=== PATIENT | female | born 1965 | race Caucasian/White ===

== ENCOUNTER → 2017-06-18 | Outpatient (CLI) | payer OTHER | END | disposition home or self-care (01) | LOC: RT 12:28 | DX: G47.33 Obstructive sleep apnea (adult) (pediatric) (principal); Z87.891 Personal history of nicotine dependence | CPT/HCPCS: G0399 ==

== ENCOUNTER → 2017-09-14 | Outpatient (CLI) | payer OTHER ==
[2017-09-14] MEDS: GADOBUTROL 7.5 MMOL/7.5 ML VIAL IV (15:22)
== END | disposition home or self-care (01) ==
LOC: KCIC MRI 13:44
DX: R42 Dizziness and giddiness (principal); Z87.891 Personal history of nicotine dependence
CPT/HCPCS: 70553; A9585

== ENCOUNTER → 2018-07-26 | Outpatient (CLI) | payer OTHER ==
[2015-05-03 00:32] VITALS: BP 153/89
[~2018-07-26] MED LIST: AMLO5TAB10 PO; ATEN50TA PO; CITA10TA4 PO; HYDR12.575 PO; MECL12.52 PO; ONDA4TAB7 PO; PROP10TA PO
--- NOTE | 2018-07-26 15:22 | KCIC ---
EXAM: RIGHT HIP, 2 VIEWS. HISTORY: Right hip pain. COMPARISON: None. FINDINGS: No fractures are identified. There is a tiny osteophyte along the posterior aspect of the femoral head. Joint spaces and alignment are maintained. IMPRESSION: 1. Joint spaces are preserved. A tiny femoral head osteophyte suggests early osteoarthritis.. Electronically signed by: Don Leblanc MD (07/26/2018 3:19 PM) [facility]
== END | disposition home or self-care (01) ==
LOC: KCIC 14:27
PROVIDERS: ATTEND Family Medicine
DX: M25.751 Osteophyte, right hip (principal)
CPT/HCPCS: 73502

== ENCOUNTER → 2018-07-30 | Outpatient (CLI) | payer OTHER ==
[2015-05-03 00:32] VITALS: BP 153/89
--- NOTE | 2018-07-30 14:41 | KCIC ---
MR of the right hip HISTORY: Right hip pain, possible labral tear. Pain for one month. TECHNIQUE: Routine multiplanar sequences are obtained. FINDINGS: No bone destruction, acute fracture or femoral head osteonecrosis. No acute fracture. No significant joint effusion. No evidence of labral tear or detachment. No para labral cyst. No advanced degenerative change. Gluteus minimus and medius tendons are intact. Hamstring tendon intact. Iliopsoas tendon intact. Rectus femoris tendon intact. No abnormal soft tissue edema or fluid collection. Large [id number] coronal STIR survey sequence demonstrates no acute findings at the contralateral hip or elsewhere in the [id number]. IMPRESSION: No acute findings or internal derangement. Electronically signed by: Keith Escobar MD (07/30/2018 2:38 PM) [id number]
== END | disposition home or self-care (01) ==
LOC: KCIC MRI 13:42
PROVIDERS: ATTEND Family Medicine
DX: M25.551 Pain in right hip (principal)
CPT/HCPCS: 73721

== ENCOUNTER 2018-10-08 12:54 | Emergency (ER) | payer OTHER ==
[~2018-10-08] VITALS: Ht 157.5 cm; Wt 77.1 kg
[2018-10-08] MEDS ORDERED: KETOROLAC 15 MG/ML VIAL. ONE (13:10)
[2018-10-08] MEDS ORDERED: MORPHINE SULFATE 2 MG/ML VIAL. ONE (13:10)
--- NOTE | 2018-10-08 13:16 | PHYS DOC ---
Past Medical History Past Medical History: Anxiety, Hypertension Additional Past Medical Histor: "anxiety attacks" Past Surgical History: Appendectomy Alcohol Use: None Drug Use: None Adult General Chief Complaint Chief Complaint: ABDOMINAL PAIN HPI HPI Patient is a 53 year old female presents with right flank pain, dysuria this been ongoing for 2 days. Patient is a 10 out of 10 pain that is throbbing and sharp. Has not taken any medicine prior to arrival. Review of Systems Review of Systems Constitutional: Denies fever or chills [] Eyes: Denies change in visual acuity, redness, or eye pain [] HENT: Denies nasal congestion or sore throat [] Respiratory: Denies cough or shortness of breath [] Cardiovascular: No additional information not addressed in HPI [] GI: Reports abdominal pain, nausea, Denies vomiting, bloody stools or diarrhea [] : Reports dysuria Musculoskeletal: Denies back pain or joint pain [] Integument: Denies rash or skin lesions [] Neurologic: Denies headache, focal weakness or sensory changes [] Endocrine: Denies polyuria or polydipsia [] Complete systems were reviewed and found to be within normal limits, except as documented in this note. Current Medications Current Medications Current Medications Medications (Trade) Dose Ordered Sig/Jerome Start Time Stop Time Status Last Admin Dose Admin Ketorolac Tromethamine (Toradol 15mg Vial) 15 mg STK-MED ONCE 10/08/18 13:10 10/08/18 13:10 DC Morphine Sulfate (Morphine Sulfate) 2 mg STK-MED ONCE 10/08/18 13:10 10/08/18 13:10 DC Sodium Chloride 1,000 ml @ 1,000 mls/hr 1X ONCE 10/08/18 13:30 10/08/18 14:29 DC 10/08/18 13:12 1,000 MLS/HR Allergies Allergies Allergies Coded Allergies Type Severity Reaction Last Updated Verified No Known Drug Allergies 05/03/15 No Physical Exam Physical Exam Constitutional: Well developed, well nourished, no acute distress, non-toxic appearance. [] HENT: Normocephalic, atraumatic, bilateral external ears normal, oropharynx moist, no oral exudates, nose normal. [] Eyes: PERRLA, EOMI, conjunctiva normal, no discharge. [] Neck: Normal range of motion, no tenderness, supple, no stridor. [] Cardiovascular:Heart rate regular rhythm, no murmur [] Lungs & Thorax: Bilateral breath sounds clear to auscultation [] Abdomen: Bowel sounds normal, soft, diffuse tenderness in the R flank, no masses, no pulsatile masses. [] Skin: Warm, dry, no erythema, no rash. [] Back: has R CVA tenderness. [] Extremities: No tenderness, no cyanosis, no clubbing, ROM intact, no edema. [] Neurologic: Alert and oriented X 3, normal motor function, normal sensory function, no focal deficits noted. [] Psychologic: Affect normal, judgement normal, mood normal. [] Current Patient Data Vital Signs Vital Signs Date Time Temp Pulse Resp B/P (MAP) Pulse Ox O2 Delivery O2 Flow Rate FiO2 10/08/18 13:03 98.2 98 24 150/76 (100) 99 Room Air 98.2 Lab Values Laboratory Tests Test 10/08/18 13:05 10/08/18 14:25 White Blood Count 8.1 x10^3/uL (4.0-11.0) Red Blood Count 4.74 x10^6/uL (3.50-5.40) Hemoglobin 14.7 g/dL (12.0-15.5) Hematocrit 43.0 % (36.0-47.0) Mean Corpuscular Volume 91 fL (79-100) Mean Corpuscular Hemoglobin 31 pg (25-35) Mean Corpuscular Hemoglobin Concent 34 g/dL (31-37) Red Cell Distribution Width 14.2 % (11.5-14.5) Platelet Count 298 x10^3/uL (140-400) Neutrophils (%) (Auto) 70 % (31-73) Lymphocytes (%) (Auto) 24 % (24-48) Monocytes (%) (Auto) 5 % (0-9) Eosinophils (%) (Auto) 1 % (0-3) Basophils (%) (Auto) 1 % (0-3) Neutrophils # (Auto) 5.7 x10^3/uL (1.8-7.7) Lymphocytes # (Auto) 1.9 x10^3/uL (1.0-4.8) Monocytes # (Auto) 0.4 x10^3/uL (0.0-1.1) Eosinophils # (Auto) 0.1 x10^3/uL (0.0-0.7) Basophils # (Auto) 0.0 x10^3/uL (0.0-0.2) Sodium Level 138 mmol/L (136-145) Potassium Level 3.5 mmol/L (3.5-5.1) Chloride Level 100 mmol/L (98-107) Carbon Dioxide Level 28 mmol/L (21-32) Anion Gap 10 (6-14) Blood Urea Nitrogen 9 mg/dL (7-20) Creatinine 0.7 mg/dL (0.6-1.0) Estimated GFR (Cockcroft-Gault) 88.2 BUN/Creatinine Ratio 13 (6-20) Glucose Level 102 mg/dL (70-99) H Calcium Level 9.3 mg/dL (8.5-10.1) Total Bilirubin 0.4 mg/dL (0.2-1.0) Aspartate Amino Transferase (AST) 16 U/L (15-37) Alanine Aminotransferase (ALT) 46 U/L (14-59) Alkaline Phosphatase 77 U/L (46-116) Total Protein 8.1 g/dL (6.4-8.2) Albumin 4.1 g/dL (3.4-5.0) Albumin/Globulin Ratio 1.0 (1.0-1.7) Lipase 131 U/L (73-393) Urine Color Yellow Urine Clarity Clear Urine pH 7.5 Urine Specific [place] 1.010 Urine Protein Negative mg/dL (NEG-TRACE) Urine Glucose (UA) Negative mg/dL (NEG) Urine Ketones (Stick) Negative mg/dL (NEG) Urine Blood Small (NEG) Urine Nitrite Negative (NEG) Urine Bilirubin Negative (NEG) Urine Urobilinogen Dipstick 0.2 mg/dL (0.2 mg/dL) Urine Leukocyte Esterase Negative (NEG) Urine RBC Occ /HPF (0-2) Urine WBC 1-4 /HPF (0-4) Urine Squamous Epithelial Cells Occ /LPF Urine Bacteria 0 /HPF (0-FEW) Urine Mucus Slight /LPF Laboratory Tests 10/08/18 13:05 Laboratory Tests 10/08/18 13:05 EKG EKG [] Radiology/Procedures Radiology/Procedures [][facility] [address] [place] [address] IMAGING REPORT Signed PATIENT: HASMUKH TIRADO JACCOUNT: [id number] : 1965 LOCATION: ER AGE: 53 SEX: F EXAM STATUS: REG ER ORD. PHYSICIAN: CHAPITO BELTRAN APRN REASON: R flank pain PROCEDURE: CT ABDOMEN PELVIS WO CONTRAST PQRS Compliance statement: One or more of the following individualized dose reduction techniques were utilized for this examination: 1. Automated exposure control. 2. Adjustment of the mA and/or kV according to patient size. 3. Use of iterative reconstruction technique. Indication:Right flank pain. TECHNIQUE: CT abdomen and pelvis without IV contrast with multiplanar reformats. COMPARISON: 02/04/2016 FINDINGS: Limited evaluation of solid abdominal and pelvic organs due to lack of IV contrast. Heart is normal in size. No pericardial or pleural effusion. Mild bibasilar dependent atelectasis. Noncontrast appearance of the liver, spleen, gallbladder, pancreas, adrenals and kidneys within normal limits. No enlarged retroperitoneal or pelvic adenopathy. No free pelvic fluid or ascites. No bowel obstruction. Appendix is surgically absent. Uterus is present. Urinary bladder demonstrates no radiopaque stone. No pneumoperitoneum. No suspicious bony lesion. IMPRESSION: Limited evaluation of solid abdominal and pelvic organs due to lack of IV contrast. No nephrolithiasis or hydronephrosis. Electronically signed by: Noah Ash DO (10/08/2018 2:12 PM) [facility] DICTATED and SIGNED BY: NOAH ASH DO DATE: 10/08/18 1412 Course & Med Decision Making Course & Med Decision Making Pertinent Labs and Imaging studies reviewed. (See chart for details) Will give supportive care, labs, and get CT scan. Labs, urine, and CT scan is unremarkable with exception of blood in urine. Clinical exam and patient pain improving with Toradol and Morphine makes me wonder if patient has small kidney stone that was not seen on CT. Will treat like a kidney stone. Dragon Disclaimer Dragon Disclaimer This electronic medical record was generated, in whole or in part, using a voice recognition dictation system. Departure Departure Impression: Primary Impression: Abdominal pain Disposition: 01 HOME, SELF-CARE Condition: STABLE Referrals: JOCELIN LATIF MD (PCP) Patient Instructions: Diet for Kidney Stones, Kidney Stones Additional Instructions: Thank you for visiting [facility]. We appreciate you trusting us with your care. If any additional problems come up don't hesitate to return to visit us. Please follow up with your primary care provider so they can plan additional care if needed and know about the problem that you had. If symptoms worsen come back to the Emergency Department. Any concerning symptoms that start such as chest pain, shortness of air, weakness or numbness on one side of the body, running high fevers or any other concerning symptoms return to the ER. Please fill your medications at any pharmacy and follow the prescription instructions. Scripts Tamsulosin Hcl (FLOMAX) 0.4 Mg Cap.er.24h 1 CAP PO DAILY, #15 CAP 11 Refills Prov: CHAPITO BELTRAN APRN 10/08/18 Hydrocodone/Apap 5-325 (NORCO 5-325 TABLET) 1 Each Tablet 1 TAB PO PRN Q6HRS PRN for PAIN for 3 Days, #10 TAB 0 Refills Prov: CHAPITO BELTRAN APRN 10/08/18 Ondansetron (ONDANSETRON ODT) 4 Mg Tab.rapdis 1 TAB PO PRN Q6-8HRS PRN for NAUSEA, #16 TAB Prov: CHAPITO BELTRAN APRN 10/08/18 Problem Qualifiers Primary Impression: Abdominal pain Abdominal location: unspecified location Qualified Codes: R10.9 - Unspecified abdominal pain CHAPITO BELTRAN APRN Oct 08, 2018 13:16
[2018-10-08 13:22] LABS: BASO % 1 % (0-3); EOS # 0.1 x10^3/uL (0.0-0.7); EOS % 1 % (0-3); HEMOGLOBIN 14.7 g/dL (12.0-15.5); LYMPH # 1.9 x10^3/uL (1.0-4.8); LYMPH % 24 % (24-48); MEAN CORPUSCULAR HEMOGLOBIN 31 pg (25-35); MEAN CORPUSCULAR HGB CONC 34 g/dL (31-37); MEAN CORPUSCULAR VOLUME 91 fL (79-100); MONO # 0.4 x10^3/uL (0.0-1.1); MONO % 5 % (0-9); NEUT # 5.7 x10^3/uL (1.8-7.7); NEUT % 70 % (31-73); PLATELET COUNT 298 x10^3/uL (140-400); RED BLOOD COUNT 4.74 x10^6/uL (3.50-5.40); RED CELL DISTRIBUTION WIDTH 14.2 % (11.5-14.5); WHITE BLOOD COUNT 8.1 x10^3/uL (4.0-11.0)
[2018-10-08 13:30] LABS: CALCIUM 9.3 mg/dL (8.5-10.1); CREATININE 0.7 mg/dL (0.6-1.0); GFR 88.2; POTASSIUM 3.5 mmol/L (3.5-5.1)
[2018-10-08] MEDS ORDERED: KETOROLAC 15 MG/ML VIAL. IV ONE (13:30)
[2018-10-08] MEDS ORDERED: MORPHINE SULFATE 2 MG/ML VIAL. IV ONE (13:30)
[2018-10-08] MEDS ORDERED: IV NORMAL SALINE 1000ML BAG 1,000 ML IV ONE (13:30)
[2018-10-08 13:35] LABS: ALBUMIN 4.1 g/dL (3.4-5.0); TOTAL BILIRUBIN 0.4 mg/dL (0.2-1.0); TOTAL PROTEIN 8.1 g/dL (6.4-8.2)
--- NOTE | 2018-10-08 14:14 | RAD ---
PQRS Compliance statement: One or more of the following individualized dose reduction techniques were utilized for this examination: 1. Automated exposure control. 2. Adjustment of the mA and/or kV according to patient size. 3. Use of iterative reconstruction technique. Indication:Right flank pain. TECHNIQUE: CT abdomen and pelvis without IV contrast with multiplanar reformats. COMPARISON: 02/04/2016 FINDINGS: Limited evaluation of solid abdominal and pelvic organs due to lack of IV contrast. Heart is normal in size. No pericardial or pleural effusion. Mild bibasilar dependent atelectasis. Noncontrast appearance of the liver, spleen, gallbladder, pancreas, adrenals and kidneys within normal limits. No enlarged retroperitoneal or pelvic adenopathy. No free pelvic fluid or ascites. No bowel obstruction. Appendix is surgically absent. Uterus is present. Urinary bladder demonstrates no radiopaque stone. No pneumoperitoneum. No suspicious bony lesion. IMPRESSION: Limited evaluation of solid abdominal and pelvic organs due to lack of IV contrast. No nephrolithiasis or hydronephrosis. Electronically signed by: Noah Ash DO (10/08/2018 2:12 PM) [facility]
[2018-10-08 14:28] VITALS: BP 109/74
[2018-10-08 14:46] LABS: BILIRUBIN,URINE NEGATIVE (NEG); CLARITY,URINE CLEAR; COLOR,URINE YELLOW; NITRITE,URINE NEGATIVE (NEG); PH,URINE 7.5; PROTEIN,URINE NEGATIVE (NEG-TRACE); UROBILINOGEN,URINE 0.2 mg/dL (0.2 mg/dL)
[2018-10-08 15:06] LABS: BACTERIA,URINE 0 /HPF (0-FEW); RBC,URINE OCC /HPF (0-2); SQUAMOUS EPITHELIAL CELL,UR OCC /LPF
[2018-10-08] MEDS ORDERED: TAMS0.4C97 PO (15:37)
[2018-10-08] MEDS ORDERED: ONDA4TAB12 PO (15:37)
[2018-10-08] MEDS ORDERED: HYDR-3164 PO (15:37)
== END 2018-10-08 16:15 | disposition home or self-care (01) ==
LOC: ER 12:54
DX: R10.11 Right upper quadrant pain (principal); R10.31 Right lower quadrant pain; R30.0 Dysuria; R11.0 Nausea; F41.9 Anxiety disorder, unspecified; I10 Essential (primary) hypertension; Z90.89 Acquired absence of other organs
CPT/HCPCS: 36415; 74176; 80053; 81001; 83690; 85025; 96374; 96375; 99285; J1885; J2270; J7030

== ENCOUNTER 2018-10-10 08:50 | Emergency (ER) | payer OTHER ==
[~2018-10-10] VITALS: Ht 154.9 cm; Wt 77.6 kg
[~2018-10-10 08:50] MED LIST changes: +HYDR-3164 PO; +ONDA4TAB12 PO; +TAMS0.4C97 PO
[2018-10-10] MEDS ORDERED: IV NORMAL SALINE 1000ML BAG 1,000 ML IV SCH (09:33)
[2018-10-10 09:43] LABS: BASO # 0.1 x10^3/uL (0.0-0.2); BASO % 1 % (0-3); EOS # 0.1 x10^3/uL (0.0-0.7); EOS % 1 % (0-3); LYMPH # 1.4 x10^3/uL (1.0-4.8); LYMPH % 21 % (24-48); MEAN CORPUSCULAR HEMOGLOBIN 31 pg (25-35); MEAN CORPUSCULAR HGB CONC 34 g/dL (31-37); MEAN CORPUSCULAR VOLUME 90 fL (79-100); MONO # 0.3 x10^3/uL (0.0-1.1); MONO % 5 % (0-9); NEUT # 4.8 x10^3/uL (1.8-7.7); NEUT % 72 % (31-73); PLATELET COUNT 268 x10^3/uL (140-400); RED BLOOD COUNT 4.53 x10^6/uL (3.50-5.40); RED CELL DISTRIBUTION WIDTH 14.3 % (11.5-14.5); WHITE BLOOD COUNT 6.7 x10^3/uL (4.0-11.0)
--- NOTE | 2018-10-10 09:44 | PHYS DOC ---
Past Medical History Past Medical History: Anxiety, Hypertension, UTI Additional Past Medical Histor: "anxiety attacks" Past Surgical History: Appendectomy, Hysterectomy Alcohol Use: None Drug Use: None Adult General Chief Complaint Chief Complaint: FLANK PAIN HPI HPI Pt is a 53-year-old female presents to the emergency department for evaluation. She was seen in the emergency department 2 days ago for right-sided flank pain. Lab and imaging tests were obtained, which did not reveal a definitive diagnosis. The patient was treated for a possible kidney stone and states that in the past 2 days, the pain is moved from her right flank, down to her pelvic area. She states that she last urinated before she went to bed last night, and has been unable to urinate since then, she states she dribbled a little bit of urine while in the shower. She has not had any fevers, nausea, vomiting. She does have a history of incontinence in the past, for which she has been taking oxybutynin for about a year. She has not had any fevers, chills, numbness, or weakness in her legs, nausea or vomiting. There are no alleviating, or exacerbating factors to her symptoms otherwise. Review of Systems Review of Systems Constitutional: Denies fever or chills [] Eyes: Denies change in visual acuity, redness, or eye pain [] HENT: Denies nasal congestion or sore throat [] Respiratory: Denies cough or shortness of breath [] Cardiovascular: The patient denies any shortness of breath, chest pain, palpitations, or orthopnea [] GI: Denies abdominal pain, nausea, vomiting, bloody stools or diarrhea [] : Reports some dysuria, and pelvic pain.[] Musculoskeletal: Denies back pain or joint pain [] Integument: Denies rash or skin lesions [] Neurologic: Denies headache, focal weakness or sensory changes [] Endocrine: Denies polyuria or polydipsia [] All other systems were reviewed and found to be within normal limits, except as documented in this note. Current Medications Current Medications Current Medications Medications (Trade) Dose Ordered Sig/Jerome Start Time Stop Time Status Last Admin Dose Admin Ceftriaxone Sodium (Rocephin) 1 gm 1X ONCE 10/10/18 12:30 10/10/18 12:31 10/10/18 12:27 1 GM Lorazepam (Ativan Inj) 1 mg 1X ONCE 10/10/18 09:45 10/10/18 09:46 DC 10/10/18 09:46 1 MG Morphine Sulfate (Morphine Sulfate) 4 mg 1X ONCE 10/10/18 09:45 10/10/18 09:46 DC 10/10/18 09:46 4 MG Sodium Chloride 1,000 ml @ 1,000 mls/hr Q1H 10/10/18 09:33 10/10/18 10:32 DC 10/10/18 09:46 1,000 MLS/HR Allergies Allergies Allergies Coded Allergies Type Severity Reaction Last Updated Verified No Known Drug Allergies 05/03/15 No Physical Exam Physical Exam PHYSICAL EXAM: CONSTITUTIONAL: Well developed, well nourished HEAD: normocephalic, atraumatic EENT: PERRL, EOMI. Conjunctivae normal color, sclerae non-icteric; moist mucous membranes. NECK: Supple, non-tender; no meningismus. LUNGS: Lungs CTA, breathing even and unlabored. Normal air movement. HEART: Regular rate and rhythm, no murmur CHEST: No deformity; non-tender ABDOMEN: The abdomen is soft, there is diffuse tenderness to palpation in the lower abdomen, without rebound or guarding, the remainder the abdomen is soft and non-tender, no masses or bruits. EXTREM: Normal ROM; no deformity, no calf tenderness. Normal pulses palpable in all extremities. There is no pedal edema. SKIN: No rash; no diaphoresis NEURO: Alert; normal speech and cognition; CN's grossly intact; strength grossly intact without focal deficit. There is no foot drop. There is no perineal anesthesia. Patellar reflexes are 2+ bilaterally. BACK: No CVA TTP. There is mild right lower lumbar paraspinal muscle tenderness to palpation, without any midline vertebral tenderness to palpation. PSYCHIATRIC: The patient exhibits a moderately anxious affect. Current Patient Data Vital Signs Vital Signs Date Time Temp Pulse Resp B/P (MAP) Pulse Ox O2 Delivery O2 Flow Rate FiO2 10/10/18 10:37 80 18 96/59 (71) 95 Room Air 10/10/18 09:05 98.2 98.2 Lab Values Laboratory Tests Test 10/10/18 09:16 10/10/18 11:18 White Blood Count 6.7 x10^3/uL (4.0-11.0) Red Blood Count 4.53 x10^6/uL (3.50-5.40) Hemoglobin 14.0 g/dL (12.0-15.5) Hematocrit 41.0 % (36.0-47.0) Mean Corpuscular Volume 90 fL (79-100) Mean Corpuscular Hemoglobin 31 pg (25-35) Mean Corpuscular Hemoglobin Concent 34 g/dL (31-37) Red Cell Distribution Width 14.3 % (11.5-14.5) Platelet Count 268 x10^3/uL (140-400) Neutrophils (%) (Auto) 72 % (31-73) Lymphocytes (%) (Auto) 21 % (24-48) L Monocytes (%) (Auto) 5 % (0-9) Eosinophils (%) (Auto) 1 % (0-3) Basophils (%) (Auto) 1 % (0-3) Neutrophils # (Auto) 4.8 x10^3/uL (1.8-7.7) Lymphocytes # (Auto) 1.4 x10^3/uL (1.0-4.8) Monocytes # (Auto) 0.3 x10^3/uL (0.0-1.1) Eosinophils # (Auto) 0.1 x10^3/uL (0.0-0.7) Basophils # (Auto) 0.1 x10^3/uL (0.0-0.2) Sodium Level 141 mmol/L (136-145) Potassium Level 3.8 mmol/L (3.5-5.1) Chloride Level 103 mmol/L (98-107) Carbon Dioxide Level 27 mmol/L (21-32) Anion Gap 11 (6-14) Blood Urea Nitrogen 10 mg/dL (7-20) Creatinine 0.7 mg/dL (0.6-1.0) Estimated GFR (Cockcroft-Gault) 88.2 BUN/Creatinine Ratio 14 (6-20) Glucose Level 107 mg/dL (70-99) H Calcium Level 9.1 mg/dL (8.5-10.1) Total Bilirubin 0.4 mg/dL (0.2-1.0) Aspartate Amino Transferase (AST) 15 U/L (15-37) Alanine Aminotransferase (ALT) 36 U/L (14-59) Alkaline Phosphatase 69 U/L (46-116) Total Protein 7.6 g/dL (6.4-8.2) Albumin 3.9 g/dL (3.4-5.0) Albumin/Globulin Ratio 1.1 (1.0-1.7) Lipase 193 U/L (73-393) Urine Collection Type Unknown Urine Color Yellow Urine Clarity Clear Urine pH 7.5 Urine Specific [place] 1.010 Urine Protein Negative mg/dL (NEG-TRACE) Urine Glucose (UA) Negative mg/dL (NEG) Urine Ketones (Stick) Negative mg/dL (NEG) Urine Blood Large (NEG) Urine Nitrite Negative (NEG) Urine Bilirubin Negative (NEG) Urine Urobilinogen Dipstick 0.2 mg/dL (0.2 mg/dL) Urine Leukocyte Esterase Large (NEG) Urine RBC 1-2 /HPF (0-2) Urine WBC >40 /HPF (0-4) Urine Squamous Epithelial Cells Few /LPF Urine Bacteria Few /HPF (0-FEW) Laboratory Tests 10/10/18 09:16 Laboratory Tests 10/10/18 09:16 EKG EKG [] Radiology/Procedures Radiology/Procedures [PROCEDURE: RENAL COMPLETE BILATERAL COMPLETE RENAL ULTRASOUND Indication: Right flank pain. Comparison: CT abdomen and pelvis without contrast, 2 days ago. Procedure: Transabdominal ultrasound images are obtained of the kidneys and bladder. Findings: The kidneys demonstrate probably normal cortical echotexture. Corticomedullary differentiation is preserved. There is no hydronephrosis. The right kidney measures 12.2 cm. The left kidney measures 10.9 cm. The urinary bladder appears normal. Right and left ureteral jets are identified. IMPRESSION: No hydronephrosis.] Course & Med Decision Making Course & Med Decision Making Pertinent Labs and Imaging studies reviewed. (See chart for details) []12:30 PM: The patient's condition remains stable. She had about 150 mL out of her Marinelli catheter when placed, and after a liter of IV fluids has put out about 500 mL more. I do not think she had urinary retention, likely bladder spasm and irritation from a UTI. I discussed test results in detail with the patient, the need for close PCP follow-up, and return precautions. Dragon Disclaimer Dragon Disclaimer This electronic medical record was generated, in whole or in part, using a voice recognition dictation system. Departure Departure Impression: Primary Impression: UTI (urinary tract infection) Additional Impression: Bladder spasm Disposition: HOME, SELF-CARE Condition: STABLE Referrals: JOCELIN LATIF MD (PCP) Patient Instructions: Urinary Tract Infection Scripts Sulfamethoxazole/Trimethoprim (BACTRIM DS TABLET) 1 Each Tablet 1 TAB PO BID, #14 TAB Prov: JOCELIN AYALA MD 10/10/18 Problem Qualifiers JOCELIN AYALA MD Oct 10, 2018 09:44
[2018-10-10] MEDS ORDERED: MORPHINE SULFATE 4 MG/ML VIAL. IV ONE (09:45)
[2018-10-10 09:52] LABS: CALCIUM 9.1 mg/dL (8.5-10.1); CREATININE 0.7 mg/dL (0.6-1.0); GFR 88.2; POTASSIUM 3.8 mmol/L (3.5-5.1)
[2018-10-10 10:04] LABS: ALBUMIN 3.9 g/dL (3.4-5.0); ALBUMIN/GLOBULIN RATIO 1.1 (1.0-1.7); TOTAL BILIRUBIN 0.4 mg/dL (0.2-1.0); TOTAL PROTEIN 7.6 g/dL (6.4-8.2)
--- NOTE | 2018-10-10 10:05 | RAD ---
COMPLETE RENAL ULTRASOUND Indication: Right flank pain. Comparison: CT abdomen and pelvis without contrast, 2 days ago. Procedure: Transabdominal ultrasound images are obtained of the kidneys and bladder. Findings: The kidneys demonstrate probably normal cortical echotexture. Corticomedullary differentiation is preserved. There is no hydronephrosis. The right kidney measures 12.2 cm. The left kidney measures 10.9 cm. The urinary bladder appears normal. Right and left ureteral jets are identified. IMPRESSION: No hydronephrosis. Electronically signed by: Carlos Manuel Rosario MD (10/10/2018 10:03 AM) [id number]
[2018-10-10 11:27] LABS: BILIRUBIN,URINE NEGATIVE (NEG); CLARITY,URINE CLEAR; COLOR,URINE YELLOW; NITRITE,URINE NEGATIVE (NEG); PH,URINE 7.5; PROTEIN,URINE NEGATIVE (NEG-TRACE); UROBILINOGEN,URINE 0.2 mg/dL (0.2 mg/dL)
[2018-10-10 11:46] LABS: BACTERIA,URINE FEW /HPF (0-FEW); SQUAMOUS EPITHELIAL CELL,UR FEW /LPF; WBC,URINE >40 /HPF (0-4)
[2018-10-10 12:07] VITALS: BP 99/62
[2018-10-10] MEDS ORDERED: cefTRIAXone IV Push 1 GM VIAL. IVP ONE (12:30)
[2018-10-10] MEDS ORDERED: SULF1TAB24 PO (12:34)
== END 2018-10-10 12:45 | disposition home or self-care (01) ==
LOC: ER 08:50
DX: N39.0 Urinary tract infection, site not specified (principal); N32.89 Other specified disorders of bladder; I10 Essential (primary) hypertension; Z90.89 Acquired absence of other organs; Z90.710 Acquired absence of both cervix and uterus
CPT/HCPCS: 36415; 51701; 76770; 80053; 81001; 83690; 85025; 87086; 96374; 96375; 99285; J0696; J2060; J2270; J7030

== ENCOUNTER → 2018-12-17 | Outpatient (CLI) | payer OTHER ==
[~2018-12-17] MED LIST changes: +SULF1TAB24 PO
--- NOTE | 2018-12-17 13:27 | KCIC ---
MRI study of the right shoulder without contrast Clinical indications: Right shoulder pain. TECHNIQUE: Noncontrast MRI study sequences of the right shoulder were performed in all 3 planes. FINDINGS: There is increased signal within the supraspinatus and infraspinatus tendons. No complete rotator cuff tear is evident. The subscapularis tendon is intact. The tendon of long of the biceps is intact. No muscle atrophy is seen. No subdeltoid or subacromial bursitis is seen. There is moderate spurring and degenerative osteoarthritis of the AC joint. Mild spurring of the inferior edge of the acromial process is seen. A type III acromial process is seen. There is mild chronic cystic change of the posterior lateral aspect of the humeral head secondary to chronic impingement. No marrow infiltrative process or fracture is seen. Small glenohumeral joint effusion is seen. The glenohumeral joint is otherwise unremarkable. No loose body is evident. The glenoid labrum is intact. No paralabral ganglion cyst or spinoglenoid notch ganglion cyst is seen. IMPRESSION: Tendinosis of the rotator cuff. No complete rotator cuff tear is seen. Impingement of the acromial humeral space. Electronically signed by: Ac Mcdonald MD (12/17/2018 1:24 PM) [facility]
== END | disposition home or self-care (01) ==
LOC: KCIC MRI 09:23
PROVIDERS: ATTEND Orthopaedic Surgery
DX: M19.011 Primary osteoarthritis, right shoulder (principal); M25.411 Effusion, right shoulder; F40.240 Claustrophobia; Z90.710 Acquired absence of both cervix and uterus
CPT/HCPCS: 73221

== ENCOUNTER → 2019-08-01 | Outpatient (CLI) | payer OTHER ==
[~2019-08-01] MED LIST changes: +DIAZ5TAB4 PO; -MECL12.52 PO; +MECL12.573 PO; +OXYB5TAB10 PO; +OXYC1TAB19 PO; +PANT40TA6 PO
== END | disposition home or self-care (01) ==
LOC: LAB 13:23
PROVIDERS: ATTEND Orthopaedic Surgery
DX: Z11.59 Encounter for screening for other viral diseases (principal); S49.91XA Unspecified injury of right shoulder and upper arm, initial encounter; Y93.89 Activity, other specified; Y92.89 Other specified places as the place of occurrence of the external cause; Y99.8 Other external cause status
CPT/HCPCS: C9803; U0003; 36415

== ENCOUNTER 2019-08-05 09:31 | Day surgery (SDC) | payer OTHER ==
[~2019-08-05] VITALS: Ht 157.5 cm; Wt 76.7 kg
[~2019-08-05 09:31] MED LIST changes: +HYDROmorphone 2 MG/ML VIAL IV PRN; +IV RINGERS,LACTATED 1000ML 1,000 ML IV SCH; +MORPHINE SULFATE 2 MG/ML VIAL. IV PRN; -OXYC1TAB19 PO; +PROCHLORPERAZINE 10 MG/2 ML VIAL. IV PRN; +ceFAZolin 2GM PREMIX 2 GM/50 ML BAG IV ONE
[2019-08-05] MEDS ORDERED: EPINEPHrine VIAL 30 MG/30 ML VIAL ONE (09:38)
[2019-08-05] MEDS ORDERED: ROPIVacaine 0.5% PF 20 ML VIAL. ONE (09:38)
[2019-08-05] MEDS ORDERED: MIDAZOLAM HCL/PF 2 MG/2 ML VIAL. ONE ×2 (09:38→11:05)
[2019-08-05] MEDS ORDERED: DEXAMETHASONE SOD PHOS 4 MG/ML VIAL ONE ×2 (10:41→11:31)
[2019-08-05 10:45] LABS: BASO % 1 % (0-3); EOS # 0.1 x10^3/uL (0.0-0.7); EOS % 2 % (0-3); HEMATOCRIT 39.6 % (36.0-47.0); HEMOGLOBIN 13.7 g/dL (12.0-15.5); LYMPH # 1.3 x10^3/uL (1.0-4.8); LYMPH % 24 % (24-48); MEAN CORPUSCULAR HEMOGLOBIN 31 pg (25-35); MEAN CORPUSCULAR HGB CONC 35 g/dL (31-37); MEAN CORPUSCULAR VOLUME 91 fL (79-100); MONO # 0.3 x10^3/uL (0.0-1.1); MONO % 6 % (0-9); NEUT # 3.7 x10^3/uL (1.8-7.7); NEUT % 67 % (31-73); PLATELET COUNT 279 x10^3/uL (140-400); RED BLOOD COUNT 4.35 x10^6/uL (3.50-5.40); WHITE BLOOD COUNT 5.4 x10^3/uL (4.0-11.0)
[2019-08-05 10:55] LABS: CALCIUM 8.4 mg/dL (8.5-10.1); CREATININE 0.7 mg/dL (0.6-1.0); GFR 88.2; POTASSIUM 3.7 mmol/L (3.5-5.1)
[2019-08-05] MEDS ORDERED: PROPOFOL 10 MG/ML (20ML) VIAL. IV ONE (10:56)
--- NOTE | 2019-08-05 10:56 | EKG ---
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
[2019-08-05] MEDS ORDERED: ROCURONIUM 50 MG/5 ML VIAL. ONE (10:59)
[2019-08-05] MEDS ORDERED: fentaNYL PF VIAL 100 MCG/2 ML VIAL ONE (10:59)
[2019-08-05] MEDS ORDERED: OXYC1TAB19 PO (11:28)
--- NOTE | 2019-08-05 11:30 | DISCH ---
DISCHARGE INSTRUCTIONS Condition on Discharge Condition on Discharge: Stable Activity After Discharge Activity Instructions for Disc: Other, see below (Sling for comfort gentle pendulum exercises and stretching, may do fine motor use with arm at side) Diet after Discharge Diet after Discharge: Diabetic No Calorie Level Wound Incision Care Wound/Incision Care: Ice to area for comfort, Change dressing (Remove dressing in 2 days may then shower) Contacting the DRVicky after DC Call your doctor for: Concerns you may have Follow-Up Follow up with: Dr. Wadsworth 1 week ANIYAH WADSWORTH MD Aug 05, 2019 11:30
[2019-08-05] MEDS ORDERED: ONDANSETRON PF 4 MG/2 ML VIAL. ONE (11:31)
[2019-08-05] MEDS ORDERED: PHENYLEPHRINE in 0.9% NACL PF 1 MG/10 ML SYRINGE. IV ONE (11:38)
[2019-08-05] MEDS ORDERED: NEOSTIGMINE METHYLSULFATE 5 MG/5 ML SYRINGE. ONE (11:51)
[2019-08-05] MEDS ORDERED: GLYCOPYRROLATE 1 MG/5 ML VIAL. ONE (11:52)
[2019-08-05] MEDS ORDERED: oxyCODONE/APAP 7.5/325 1 TAB TABLET PO ONE (13:30)
[2019-08-05] MEDS ORDERED: PROCHLORPERAZINE 10 MG/2 ML VIAL. ONE (14:01)
--- NOTE | 2019-08-05 16:03 | PDOC4 ---
Operative Note Operative Note Date of surgery: 08/05/2019 Preoperative diagnosis: Right shoulder impingement and acromioclavicular joint pain Postoperative diagnosis: Same with anterior acromial spurring and degenerative acromioclavicular joint right shoulder, partial thickness undersurface supraspinatus tear and labral fraying superiorly Operative procedure: Right shoulder arthroscopy debridement of partial-thickness rotator cuff tear superior labrum fraying, subacromial decompression, distal clavicle excision Surgeon: [employer]: Beatrice Anesthesia: General plus scalene block Estimated blood loss 10 cc Complications: None Operative indications: Please see my orthopedic clinic note for detailed operative indications and note that we had previously discussed the possibility of decompression distal clavicle excision and addressing any other relevant pathology in appropriate fashion and that I do not expect specific restrictions on her postoperative activity other than what pain and weakness would limit. We did discuss the possibility of continued pain infection nerve or blood vessel damage or other medical or other anesthetic complications and the likelihood of a long recovery process generally with shoulder rehabilitation all her questions were answered she does wish to proceed with surgical evaluation and treatment. Operative text: Patient was identified procedure verified patient placed in the supine position on the operating table. After adequate amounts of general anesthesia plus a pre-existing scalene block were obtained she was placed decubitus position right side up all bony prominences were well-padded and the right shoulder was prepped and draped in standard sterile fashion. After timeout was performed patient procedure identified and verified a standard posterior portal was established an anterior portal established using spinal needle localization and the shoulder joint was systematically examined. She was noted to have some undersurface tear of the supraspinatus insertion involving only about 10 to 15% of the tendon substance which was trimmed back to stable tissue with the arthroscopic shaver. The remainder of the footprint was intact as was the subscapularis insertion. She did have some superior labral fraying constituting a type I SLAP tear which was debrided back to stable tissue she had normal capsule ligamentous structures and bare area of the humerus. The subacromial space was then entered bursa was cleared for visualization and the supraspinatus insertion was noted to be intact on the bursal side as expected she did have however significant bursal irritation and irritation on the coracoacromial ligament and a large anterior acromial spur which was trimmed back to a type I acromion using cutting block technique. Distal clavicle was noted to be narrowed and degenerative and was excised about 1 cm preserving the overlying joint capsule for stability. All bony fragments were removed with the arthroscopic shaver the joint was drained of arthroscopic fluid portals closed with nylon suture sterile dressings were applied patient was placed in a sling returned to recovery room stable condition having tolerated the procedure well ANIYAH RICO MD Aug 05, 2019 16:03
[2019-08-05 16:40] VITALS: BP 98/65
== END 2019-08-05 16:49 | disposition home or self-care (01) ==
LOC: SURG 09:31
PROVIDERS: ATTEND Orthopaedic Surgery
DX: M75.111 Incomplete rotator cuff tear or rupture of right shoulder, not specified as traumatic (principal); M75.41 Impingement syndrome of right shoulder; M19.011 Primary osteoarthritis, right shoulder; M24.111 Other articular cartilage disorders, right shoulder; G47.30 Sleep apnea, unspecified; K21.9 Gastro-esophageal reflux disease without esophagitis; F41.9 Anxiety disorder, unspecified; E66.9 Obesity, unspecified; Z79.01 Long term (current) use of anticoagulants; Z68.31 Body mass index [BMI] 31.0-31.9, adult; Z87.891 Personal history of nicotine dependence; Z90.49 Acquired absence of other specified parts of digestive tract
CPT/HCPCS: 29823; 29824; 29826; 36415; 64415; 80048; 85025; 93005; A7015; C1713; J0171; J0696; J0780; J1100; J2250; J2370; J2405; J2704; J2710; J2795; J3010; J3490; J0690

== ENCOUNTER → 2020-07-05 | Outpatient (CLI) | payer OTHER ==
[~2020-07-05] MED LIST changes: +AMLO-186 PO; -AMLO5TAB10 PO; +GADOTERATE 7.5 MMOL/15ML VIAL. IVP ONE; -HYDROmorphone 2 MG/ML VIAL IV PRN; -IV RINGERS,LACTATED 1000ML 1,000 ML IV SCH; -MECL12.573 PO; +MECL12.582 PO; -MORPHINE SULFATE 2 MG/ML VIAL. IV PRN; +OXYC1TAB19 PO; -PROCHLORPERAZINE 10 MG/2 ML VIAL. IV PRN; -ceFAZolin 2GM PREMIX 2 GM/50 ML BAG IV ONE
--- NOTE | 2020-07-05 11:12 | KCIC ---
MRI BRAIN WO+W Date: 07/05/2020 9:20 AM Indication: TREMOR. Progressing tremor in head and hands. Comparison: None. Technique: Multiplanar multisequence MRI of the brain was performed with and without intravenous cont rast using the standard protocol. 14 cc Clariscan contrast was administered intravenously during the exam. Findings: No acute infarct. No acute or chronic hemorrhage. The ventricles are normal in size and configuration without hydrocephalus. No abnormal enhancement. The scalp and calvarium are normal. The pituitary and sella are normal. No Chiari malformation. The v isualized upper cervical spine is normal. The visualized orbits and globes are normal. The visualized paranasal sinuses are clear. The mastoid air cells are clear. Normal flow voids within the vertebral, basilar, and internal carotid arteries indicating patency. IMPRESSION: 1. No acute infarct or hemorrhage. 2. No mass or abnormal enhancement. Electronically signed by: Joe Monroe MD (07/05/2020 11:09 AM) [id number]
== END ==
LOC: KCIC MRI 08:53
DX: R25.1 Tremor, unspecified (principal)
CPT/HCPCS: 70553; A9575